=== PATIENT | male | born 1960 | race Caucasian/White ===

== ENCOUNTER 2023-06-05 17:12 | Emergency (ER) | payer OTHER ==
[~2023-06-05] VITALS: Ht 170.2 cm; Wt 107.5 kg
[2023-06-05 17:21] VITALS: BP 157/81; PULSE 74; RESP 18; TEMP 97.6; O2SAT 97
[2023-06-05] MEDS ORDERED: KETOROLAC 30 MG/ML VIAL IM ONE (19:05)
== END 2023-06-05 19:31 | disposition home or self-care (01) ==
LOC: MED 17:12
DX: G62.9 Polyneuropathy, unspecified (principal); I10 Essential (primary) hypertension; Z79.899 Other long term (current) drug therapy
CPT/HCPCS: 96372; 99283; J1885